=== PATIENT | male | born 1995 | race African-American/Black ===

== ENCOUNTER 2022-03-30 13:06 | Emergency (ER) | payer OTHER, SELFPAY ==
[2022-03-30 13:18] VITALS: BP 114/64; PULSE 78; RESP 16; TEMP 36.7; O2SAT 100
[2022-03-30 13:31] VITALS: BP 114/64; PULSE 78; RESP 16; TEMP 36.7; O2SAT 100
--- NOTE | 2022-03-30 13:32 | ED.DENTAL ---
HPI - Dental/Oral General Chief complaint: Dental/Oral Stated complaint: tooth pain Time Seen by Provider: 03/30/22 13:20 Source: patient, RN notes reviewed and old records reviewed Mode of arrival: ambulatory Limitations: no limitations History of Present Illness HPI Narrative: 26-year-old male [facility] complaints of dental pain to left lower posterior molar for the past 2 months which has increased in the last 2 to 3 days duration. Patient reports that he ate some rice last night and it made the tooth hurt even more. Patient denies any fevers, chills or sweats, no trismus noted and patient denies any difficulty with swallowing or with his breathing. MD Complaint: tooth pain Location: Tooth # (17) Onset (ago): month(s) (2 months with increase in past 2 days) Severity scale (1-10): 5 Treatment prior to arrival: oral analgesic Related Data Allergies Allergy/AdvReac Type Severity Reaction Status Date / Time No Known Allergies Allergy Verified 03/30/22 13:17 Review of Systems Review of Systems: CONSTITUTIONAL: Denies fever, chills, or sweats. EYES: Denies visual changes, redness, or discharge. ENT: Denies rhinorrhea, congestion, sore throat, or otalgia. Positive for dental pain CARDIOVASCULAR: Denies chest pain, palpitations, or edema. RESPIRATORY: Denies cough or dyspnea. GASTROINTESTINAL: Denies abdominal pain, nausea, vomiting, or diarrhea. GENITOURINARY: Denies dysuria or hematuria. SKIN: Denies rash or itching. MUSCULOSKELETAL: Denies back pain, joint pain, or myalgia. NEUROLOGIC: Denies headache, numbness, or weakness. PSYCHIATRIC: Denies anxiety or depression. All systems reviewed & are unremarkable except as noted in HPI and below [facility] Past Medical History Medical History (Updated 03/30/22 @ 13:57 by Lily Ross NP) Abscess of chest Bilateral ankle fractures Scalp abscess Surgical History Surgical History (Updated 03/30/22 @ 13:58 by Lily Ross NP) No history of previous surgery Social History Social History (Updated 03/30/22 @ 13:59 by Lily Ross NP) Smoking status: Never smoker Alcohol intake: never Substance use type: marijuana Last use: occasional use Living arrangements: with family Gender identity (if verbalized by the patient): Male Comments At time of signature, agree with nursing past medical, surgical, social and family history. There is no relevant family history pertinent to the presenting complaint Exam Narrative: GENERAL: Well-appearing, well-nourished, and in no acute distress. HEAD: Normocephalic, atraumatic. EYES: PERRLA and EOMI. ENT: Nares clear, no rhinorrhea or epistaxis. Mucous membranes moist. TM's normal with good light reflex, throat pink with no lesions or exudates,no tonsil swelling. no trismus or facial swelling noted, patient has no Hoang angina NECK: Supple.no lymphadenopathy CHEST: Clear to auscultation. No respiratory distress.SAO2 100% on room air HEART: Regular rate and rhythm. No murmur heard. Normal peripheral pulses. ABDOMEN: Soft, nontender, nondistended, normal active bowel sounds. EXTREMITIES: Normal range of motion. No edema. SKIN: Warm, dry, no rash. NEURO: No focal deficits. Alert and oriented x3. Course Course Level of Care: Express Care Visit Vital Signs Vital signs: Vital Signs Temperature 36.7 C 03/30/22 13:18 Pulse Rate 78 03/30/22 13:18 Respiratory Rate 16 03/30/22 13:18 Blood Pressure 114/64 03/30/22 13:18 Pulse Oximetry 100 03/30/22 13:18 Oxygen Delivery Room Air 03/30/22 13:18 Temperature 36.7 C 03/30/22 13:31 Pulse Rate 78 03/30/22 13:31 Respiratory Rate 16 03/30/22 13:31 Blood Pressure 114/64 03/30/22 13:31 Pulse Oximetry 100 03/30/22 13:31 Oxygen Delivery Room Air 03/30/22 13:31 Critical Care Time Critical Care Time Critical Care Time: No Discharge Plan Discharge Clinical Impression: Dentalgia, Dental impaction Lul
== END 2022-03-30 13:53 | disposition home or self-care (01) ==
PROVIDERS: Emergency Provider Registered Nurse
DX: K08.89 Other specified disorders of teeth and supporting structures (principal); K01.1 Impacted teeth
CPT/HCPCS: 99203; G0463

== ENCOUNTER 2024-02-12 18:04 | Emergency (ER) | payer OTHER, SELFPAY ==
--- NOTE | ~2024-02-12 | XR_ITS ---
EXAMINATION: XR chest 2V Exam Date/Time: 02/12/2024 18:17 CDT HISTORY: chest pain, CENTER AND TO THE RIGHT FOR 1 DAY Comparison: None. RESULT: Lines, tubes, and devices: None. Lungs and pleura: Clear. Cardiomediastinal silhouette: Normal. Other: No acute osseous or upper abdominal finding. IMPRESSION: No acute cardiopulmonary process. Reviewed, dictated and finalized at location K.
--- NOTE | 2024-02-12 18:05 | ECG_ITS ---
Test Date: 2024-02-12 18:09:26 Measurements Intervals [place] Rate: 58 P: 49 MD: 154 QRS: 74 QRSD: 86 T: 55 QT: 364 QTc: 359 Interpretive Statements SINUS BRADYCARDIA RSR' IN V1 OR V2, PROBABLY NORMAL VARIANT ST ELEVATION IN DIFFUSE LEADS- PROBABLY EARLY REPOLARIZATION BORDERLINE ECG No previous ECG available for comparison Electronically Signed On 02-13-2024 07:30:18 CDT by Casey Naik D.O.
[2024-02-12 18:16] VITALS: BP 109/70; PULSE 64; RESP 16; TEMP 36.6; O2SAT 100
[2024-02-12 18:20] LABS: Basophils Absolute Auto 0.1 K/mm3 (0.0-0.1); Basophils Percent Auto 0.9 % (0.2-1.2); Eosinophils Absolute Auto 0.3 K/mm3 (0-0.3); Eosinophils Percent Auto 3.4 % (0-4.4); Hematocrit 45.1 % (42.0-52.0); Hemoglobin 15.8 g/dL (14.0-18.0); Immature Granulocyte Absolute 0.03 K/mm3 (0.00-0.031); Immature Granulocyte Percent A 0.4 % (0-0.5); Lymphocytes Absolute Auto 3.05 K/mm3 (0.9-3.2); Lymphocytes Percent Auto 38.7 % (18.3-44.2); Mean Corpuscular Hemoglobin 31.6 pg (26-34); Mean Corpuscular Volume 90.2 fl (80-100); Mean Platelet Volume 10.5 fl (7.4-10.4); Monocytes Absolute Auto 0.6 K/mm3 (0.1-0.6); Monocytes Percent Auto 7.9 % (2.6-8.5); Neutrophils Absolute Auto 3.9 K/mm3 (1.3-6.7); Neutrophils Percent Auto 48.7 % (45.5-73.1); Platelet Count Result 190 k/mm3 (150-375); White Blood Count 7.9 K/mm3 (4.5-10.0)
[2024-02-12 18:31] LABS: Alanine Aminotransferase 31 U/L (6-50); Albumin Level 4.5 g/dL (3.5-5.1); Alkaline Phosphatase 79 U/L (38-126); Anion Gap 12 mmol/L (4-12); Aspartate Amino Transferase 25 U/L (17-59); Bilirubin,Total 0.9 mg/dL (0.2-1.3); Blood Urea Nitrogen 9 mg/dL (9-20); Calcium 9.3 mg/dL (8.4-10.2); Carbon Dioxide 24 mmol/L (22-30); Chloride 103 mmol/L (98-107); Estimated CRCL calculation 89 ml/min; Estimated Glomerular Filt Rate > 60; Glucose 78 mg/dL (65-110); Lipase 78 U/L (23-300); Potassium 3.6 mmol/L (3.4-5.0); Prothrombin Time 13.5 Seconds (11.1-14.7); Sodium 139 mmol/L (137-145)
[2024-02-12 18:32] LABS: Partial Thromboplastin Time 24.7 Seconds (22.3-36.8)
[2024-02-12 18:45] LABS: Troponin I < 0.012 ng/mL (0.000-0.034)
[2024-02-12 19:13] VITALS: BP 132/80; PULSE 59; RESP 15; O2SAT 100
[2024-02-12] MEDS: ASPIRIN 81 MG CHEWABLE TABLET 324 MG PO (19:25)
[2024-02-12] MEDS: SODIUM CHLORIDE 0.9% IV 1,000 ML 999 ML IV CONT (19:45)
[2024-02-12] MEDS: KETOROLAC 15 MG/ML VIAL (*BKC) IV PUSH (19:46)
[2024-02-12] MEDS: diphenhydrAMINE HCl INJ 50 MG/ML VIAL 25 MG IV PUSH (19:46)
[2024-02-12] MEDS: METOCLOPRAMIDE HCL INJ 10 MG/2 ML VIAL IV PUSH (19:46)
[2024-02-12 21:43] LABS: Troponin I < 0.012 ng/mL (0.000-0.034)
--- NOTE | 2024-02-12 21:55 | ECG_ITS ---
Test Date: 2024-02-12 21:55:17 Measurements Intervals [place] Rate: 52 P: 39 TX: 154 QRS: 64 QRSD: 92 T: 42 QT: 406 QTc: 378 Interpretive Statements SINUS BRADYCARDIA POSSIBLE RIGHT VENTRICULAR CONDUCTION DELAY ST ELEVATIONIN DIFFUSE LEADS, PROBABLY EARLY REPOLARIZATION BORDERLINE T WAVE ABNORMALITY- ANTERIOR LEADS BORDERLINE ECG Compared to ECG 02/12/2024 18:09:26 T-wave abnormality now present Electronically Signed On 02-13-2024 17:28:23 CDT by Casey Naik D.O.
--- NOTE | 2024-02-12 21:56 | ED.GENADULT ---
HPI - General Adult General Chief complaint: Chest Pain Stated complaint: chest pain Time Seen by Provider: 02/12/24 19:13 History of Present Illness HPI narrative: Patient is a 28-year-old gentleman who presents emergency department with chief complaint of chest wall pain. Patient reports that he started having discomfort on the right side of his chest patient reports pain is worse with inspiration worse with movement. Patient does report there is tightness or heaviness component does report that he has also had a headache. Patient states this not the worst headache of his life patient reports no shortness of breath denies diaphoresis reports no family history of early cardiac disease. Related Data Allergies Allergy/AdvReac Type Severity Reaction Status Date / Time No Known Allergies Allergy Verified 02/12/24 18:04 Review of Systems Review of Systems: A 10 system review of systems was completed on the patient and is negative except for what is stated in the HPI. Nursing and ancillary documentation was reviewed. [facility] Past Medical History Medical History Abscess of chest Bilateral ankle fractures Scalp abscess Surgical History Surgical History No history of previous surgery Social History Social History Smoking status: Never smoker Alcohol intake: never Substance use type: marijuana Last use: occasional use Living arrangements: with family Gender identity (if verbalized by the patient): Male Exam Narrative: GENERAL: Well-appearing, well-nourished, and in no acute distress. HEAD: Normocephalic, atraumatic. EYES: PERRLA and EOMI. ENT: Nares clear, no rhinorrhea or epistaxis. Mucous membranes moist. NECK: Supple. CHEST: Clear to auscultation. No respiratory distress. Chest wall tender to palpation on the right side chest HEART: Regular rate and rhythm. No murmur heard. Normal peripheral pulses. ABDOMEN: Soft, nontender, nondistended, normal active bowel sounds. EXTREMITIES: Normal range of motion. No edema. SKIN: Warm, dry, no rash. NEURO: No focal deficits. Alert and oriented x3. PSYCH: Normal mood and affect. Course Vital Signs Vital signs: Vital Signs Temperature 36.6 C 02/12/24 18:16 Pulse Rate 64 02/12/24 18:16 Respiratory Rate 16 02/12/24 18:16 Blood Pressure 109/70 02/12/24 18:16 Pulse Oximetry 100 02/12/24 18:16 Oxygen Delivery Room Air 02/12/24 18:16 Temperature 36.6 C 02/12/24 18:16 Pulse Rate 59 L 02/12/24 19:13 Respiratory Rate 15 02/12/24 19:13 Blood Pressure 132/80 02/12/24 19:13 Pulse Oximetry 100 02/12/24 19:13 Oxygen Delivery Room Air 02/12/24 18:16 Medical Decision Making MDM Narrative Medical decision making narrative: Differential diagnosis includes ACS, chest wall pain, atypical chest pain Laboratory studies were obtained on the patient showed normal CBC normal CMP liver enzymes were normal troponin was negative at 0 hour 3 hour lipase was normal Chest x-ray showed no focal infiltrate Vital Signs Vital Signs: Vital Signs Temperature 36.6 C 02/12/24 18:16 Pulse Rate 64 02/12/24 18:16 Respiratory Rate 16 02/12/24 18:16 Blood Pressure 109/70 02/12/24 18:16 Pulse Oximetry 100 02/12/24 18:16 Oxygen Delivery Room Air 02/12/24 18:16 Temperature 36.6 C 02/12/24 18:16 Pulse Rate 59 L 02/12/24 19:13 Respiratory Rate 15 02/12/24 19:13 Blood Pressure 132/80 02/12/24 19:13 Pulse Oximetry 100 02/12/24 19:13 Oxygen Delivery Room Air 02/12/24 18:16 Lab Data 02/12/24 18:14 02/12/24 18:14 Labs: Lab Results 02/12/24 02/12/24 Range/Units 18:14 21:18 WBC 7.9 (4.5-10.0) K/mm3 RBC 5.00 (4.6-6.20) M/mm3 Hgb 15.8 (14.0-18.0) g/dL Hct
[2024-02-12 22:25] VITALS: BP 116/74; PULSE 87; RESP 16; O2SAT 99
== END 2024-02-12 22:25 | disposition home or self-care (01) ==
PROVIDERS: Family Medicine; Emergency Provider Emergency Medicine
DX: R07.89 Other chest pain (principal); R51.9 Headache, unspecified
CPT/HCPCS: 36415; 71046; 80053; 83690; 84484; 85025; 85610; 85730; 93005; 96361; 96374; 96375; 99284; A9270; J1200; J1885; J2765; J7030

== ENCOUNTER 2024-08-01 18:05 | Emergency (ER) | payer OTHER, SELFPAY ==
[2024-08-01 18:12] VITALS: BP 114/85; PULSE 98; RESP 20; TEMP 36.4; O2SAT 98
--- NOTE | 2024-08-01 20:28 | PC.NURSE ---
Pt. call x1 to be brought back to a room with no reply.
== END 2024-08-01 20:28 | disposition left against medical advice (07) ==
DX: L72.9 Follicular cyst of the skin and subcutaneous tissue, unspecified (principal)
CPT/HCPCS: 99199

== ENCOUNTER 2024-10-01 01:27 | Day surgery (SDC) | payer OTHER, SELFPAY ==
[2024-09-19 12:38] VITALS: BMI 25.0
--- NOTE | 2024-09-19 12:39 | PC.NURSE ---
Report to the Outpatient Waiting Room, entrance under the green pavilion located off [facility], at time _1100_ on date _01-04-4126_. Planned Procedure Time: _1pm_.? Time changes happen often and if your time is changed the preop area will call you the afternoon before. - You and your visitor will be asked to self-screen and do not enter if you have any COVID symptoms. Please call surgeon if you need to reschedule. - A mask is optional within the hospital at this time. Patients may have clear liquids (water, carbonated beverages, clear teas, apple juice) until 3 hours prior to surgery with a maximum of 20 ounces. - No food from midnight until time of surgery and no smoking, or chewing tobacco (or any form of nicotine). No chewing gum, candy or mints. Take only the following medications with a SIP of water on the morning of surgery: ___Antibiotics if still taking.____ DO NOT STOP ANY OF YOUR OTHER PRESCRIPTION MEDICATIONS PRIOR TO SURGERY EXCEPT THE FOLLOWING Hold all vitamins and supplements for 3 days per anesthesiologist. Medications to discontinue per physician Date to take last dose Please no make-up, nail croatian, hairspray, perfume, deodorant, or body powder the day of surgery.? No jewelry (including any body piercings) or valuables the day of surgery, leave them at home.? Please take a shower or bath the night before, or the morning of, surgery with an antibacterial soap.? Wear comfortable, loose fitting clothing.? - Jewelry must be removed prior to entering the operating room.? Rings and piercings that are not removed may be cut off. - The hospital will not accept responsibility for valuables.? - Please leave all valuables, including medications, at home the day of surgery. If you are going home after surgery, a licensed entry level truck driver must drive you home.? - NO public transportation without another adult if you receive anesthesia. - We recommend that an adult stay with you for 24 hours following discharge. - We also recommend that you do not drive, make important decision, drink alcoholic beverages, or take any drugs that were not prescribed by your health care provider for at least 24 hours after your discharge time. Follow any additional instructions given to you from your surgeon. Telephone instructions given to __Scotty__and asked if any additional questions and then verbalized understanding. Patient advised to call surgeon office or pre surgery nurse liaison [phone] if any additional questions.
--- OUTSIDE RECORDS SUMMARY | 2024-10-01 01:30 | XMS_ITS | Clinical Summary ---
Author Organization [facility] [address] [facility] [address] Address [address] [address] Care Team Providers Care Plant Sciences Professor Name Role Phone Mitch Betancourt MD Primary Care Provider [phone] Allergies Active Allergy Reactions Criticality Noted Date Comments [place] Itching Low 02/15/2015 Medications No known medications Active Problems Problem Noted Date Diagnosed Date Abscess, scalp 11/04/2020 Assessment & Plan (11/04/2020 9:39 AM CDT): Will treat with Cleocin. Not fluctuant at this time and no drainage but likely this will need to be drained. We will refer to surgeon for drainage Well adult exam 05/26/2020 Assessment & Plan (05/26/2020 9:20 AM CDT): The lesion on his leg is very likely benign but I told him I can not rule out malignancy. Suggested referral to Dermatology for opinion but declined. He needs to return if this changes in any way such as increase in size. Told him biopsy is only way to be sure what it is. Immunizations Immunization Administration Dates Next Due DTP 02/13/1996, 5,03/21/1995,01/11 DTaP 11/15/1998 Hep B, Adolescent or Pediatric 05/31/1995,1994,1994 HiB 02/13/1996, 5,03/21/1995,01/11 Influenza, Unspecified 05/26/2020(Deferred: Tyesha ent Refused) MMR 11/15/1998,12/07/1995 Meningococcal Polysaccharide (Menomune) 01/05/2011 OPV 11/15/1998, 5,03/21/1995,01/11 Tdap 01/05/2011 Varicella 11/15/1998 Surgical History Surgery Date Site/Laterality Comments NO PAST SURGERIES Medical History Medical History Date Comments Asthma Family History Medical History Relation Name Comments Asthma Father Asthma Mother Cancer Neg Hx Diabetes Neg Hx Hypertension Neg Hx Relation Name Status Comments Father Alive Mother Social History Tobacco Use Types Packs/Day Years Used Date Smoking Tobacco: Never Smokeless Tobacco: Never Alcohol Use Standard Drinks/Week Comments Not Currently 0 (1 standard drink = 0.6 oz pur e alcohol) AUDIT-C Answer Date Recorded Q1: How often do you have a drink containing alc ohol? Monthly or less 11/04/2020 Q2: How many drinks containi ng alcohol do you have on a typical day when you are drinking? 1 or 2 11/04/2020 Q3: How often do you have si x or more drinks on one occasion? 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 Gender Identity Not on file Sexual Orientation Not on file Obstetrics History Last Filed Vital Signs Vital Sign Reading Time Taken Comments Blood Pressure 126/70 11/04/2020 9:21 AM CDT Pulse 86 11/04/2020 9:21 AM CDT Temperature 36.4 C (97.5 F) 11/04/2020 9:21 AM CDT Respiratory Rate 20 11/04/2020 9:21 AM CDT Oxygen Saturation 100% 11/04/2020 9:21 AM CDT Inhaled Oxygen Concentration - - Weight 53.7 kg (118 lb 4.8 oz) 11/04/2020 9:21 A M CDT Height 162.6 cm (5' 4.02 ) 11/04/2020 9:21 AM CD T Body Mass Index 20.3 11/04/2020 9:21 AM CDT Plan of Treatment Not on file [address] OPEN ACCESS [facility] HMO/PPO Address: [facility] [id number] [place] [address] Care Teams Plant Sciences Professor Relationship Specialty Start Date End Date Mitch Betancourt MD PCP - General 11/11/20
--- OUTSIDE RECORDS SUMMARY | 2024-10-01 01:30 | XMS_ITS | Referral Summary ---
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
--- OUTSIDE RECORDS SUMMARY | 2024-10-01 01:30 | XMS_ITS | CONTINUITY OF CARE DOCUMENT ---
Author Name shivam langley Address Unknown Organization [facility] Address [address] [place] [address] Phone [phone] Care Team Providers Care Director Card Name Role Phone Steve Galindo MD Unavailable Steve Galindo MD Unavailable [phone] INSURANCE PROVIDERS Payer name Policy type / Coverage type [place] [employer] [place] [id number] MED[place] Medicaid [id number]
[2024-10-01 10:30] VITALS: BP 114/69; PULSE 60; RESP 14; TEMP 36.4; O2SAT 100
[2024-10-01 11:28] VITALS: BMI 23.4
--- NOTE | 2024-10-01 12:13 | WPDHPUPDATE1 ---
History and Physical Update Update Date/Time: 10/01/24 12:13 History and Physical has been reviewed, including an updated exam of the patient. There are NO changes in the patient's condition. Risks, benefits, and alternatives have been discussed and questions answered. Patient agrees to proceed with procedure.
--- NOTE | 2024-10-01 13:28 | P.PNAN_ITS ---
Anes - Initial Pre Proc Eval Procedure: Operation Date: 10/01/24 13:00 Proposed Procedures p Excisional Biopsy Posterior Neck Cysts Times Two - Susan Esposito MD Date/Time: 10/01/24 13:28 Surgeon: Susan Esposito MD Pre Op Diagnosis: Posterior Neck Cysts Patient Data Age: 28 Gender: M Height: 1.65 m Weight: 64 kg Last Vital Signs Temp 97.6 F 10/01/24 10:30 Pulse 60 10/01/24 10:30 Resp 14 10/01/24 10:30 BP 114/69 10/01/24 10:30 Pulse Ox 100 10/01/24 10:30 O2 Del Method Room Air 10/01/24 10:30 Allergies Allergy/AdvReac Type Severity Reaction Status Date / Time No Known Allergies Allergy Verified 10/01/24 11:22 Home Medications ?Medication ?Instructions ?Recorded ?Confirmed ?Type amoxicillin 875 mg-potassium 1 tablet PO BID #20 tabs 09/10/24 10/01/24 Rx clavulanate 125 mg tablet Patient hx anesthesia problems: none Family hx anesthesia problems: none Results Review: All pre-operative results and documents have been reviewed as part of the pre- operative evaluation. [facility] Past Medical History Medical History Asthma Allergies Abscess of chest Scalp abscess Bilateral ankle fractures Surgical History Surgical History No history of previous surgery Family History Family History Mother Asthma Hypertension Cerebrovascular accident Father Asthma Hypertension Social History Social History Smoking status: Never smoker Tobacco type: e-cigarettes/vaping Alcohol intake: current Substance use type: marijuana Other substance usage details: 3 or 4 times a day. Last use: occasional use Do You Feel Safe in your Home?: Yes Lack of Transportation: No Lack of Food: Never True Current Housing: I Have Housing Concerned About Future Housing: No Difficulty Paying Gas/Electric Bills: No Difficulty Paying for Meds: No Currently Unemployed: YES Education: High School Diploma/GED Difficulty w/ Childcare or Family Care: No Living arrangements: with family Gender identity (if verbalized by the patient): Male Spiritual care concerns: No Anes - Eval Final PreProcedure Day of Procedure 10/01/24 13:28 Patient weight: normal Lungs: normal air movement Airway: Mallampati scale class 1 Neurological: alert and oriented Last oral intake: >/= 8 hours ASA classification: II Emergent: no Anesthetic plan: proceed Anesthesia type and monitoring: general GIVS and standard monitoring Results Review: All pre-operative results and documents have been reviewed as part of the pre- operative evaluation. Pt denies asthma, Smokes marijuana approx 4 x daily most days, none this am. Overall active w playing basketball, no cp or sob. Informed Consent: The patient's anesthetic plan and its attendant risks and benefits were discussed with the patient/family/POA. Questions were solicited and answers provided to the satisfaction of the patient/family/POA.
[2024-10-01] MEDS: ceFAZolin 2 GM/D5W 50 ML 2 GM/50 ML BAG IVPB (13:32)
[2024-10-01] MEDS: BUPIVACAINE/EPINEPHRINE 0.5% 50 ML VIAL 6 ML INFILTRATE (14:00)
[2024-10-01 14:13] VITALS: BP 117/68; PULSE 91; RESP 20; O2SAT 96
[2024-10-01] MEDS: LACTATED RINGERS 1,000 ML 30 ML IV CONT (14:13)
--- NOTE | 2024-10-01 14:25 | W.PM.PROC2 ---
Procedure Note - Detailed Date of Procedure 10/01/24 Pre-op Diagnosis Posterior Neck Cysts Post-op Diagnosis Same Procedure Performed aborted excisional biopsy posterior neck cyst x2 secondary to severe reactive airway bronchial spasms Surgeon Susan Esposito MD Anesthesia MAC and Local Indications 28-year-old male presenting with posterior neck cyst x2 Findings patient was severe bronchial spasms and procedure aborted secondary to desaturations and copious mucus production Description of Procedure The patient was taken the operating room placed in the lateral position. After adequate induction of MAC anesthesia, the patient was prepped and draped in the normal sterile fashion. A time-out was then done to verify the patient's identity, as well as the procedure being performed. I began by placing local anesthetic at the anticipated incision sites. The patient began to have a severe coughing episode with copious mucus production. The patient also was noted to have desaturations into the high 70s, low 80s as well as tachycardia. Given these findings, the decision was made to allow the patient to further wake up and stop on anesthetic. Given the severity of the reactive airway disease, bronchospasms the decision was made to abort the procedure. Upon lightening the patient, his saturations did improve to the 90s. At this point the patient will be allowed to be further monitored and woken up in the recovery room. Estimated Blood Loss 0 Condition Stable Disposition PACU [facility] Billing Surgery - Charge Forward: Surgery Billing
[2024-10-01 14:35] VITALS: BP 124/94; PULSE 88; RESP 16
[2024-10-01 14:52] VITALS: BP 105/62; PULSE 66; RESP 16
== END 2024-10-01 15:00 | disposition home or self-care (01) ==
PROVIDERS: PCP Emergency Medicine; Visit Provider Surgery
PROC: (CPT 11421; principal; 2024-10-01 13:00)
DX: L72.9 Follicular cyst of the skin and subcutaneous tissue, unspecified (principal); J98.01 Acute bronchospasm; F12.90 Cannabis use, unspecified, uncomplicated; Z82.49 Family history of ischemic heart disease and other diseases of the circulatory system
CPT/HCPCS: 11421; J0690; J2003; J2250; J2704; J3010; J7120

== ENCOUNTER 2024-11-25 08:31 | Emergency (ER) | payer OTHER, SELFPAY ==
--- NOTE | 2024-11-25 08:33 | ED.CHESTPAIN ---
HPI - Chest Pain General Chief Complaint: Chest Pain Stated Complaint: left side chest pain Time Seen by Provider: 11/25/24 08:40 Source: patient, RN notes reviewed and old records reviewed Mode of arrival: ambulatory Limitations: no limitations History of Present Illness HPI narrative: 29-year-old male presents to the [facility] with ?severe? left-sided chest pain. States that he woke up about 615 this morning with chest pain, shortness of breath. Patient with continued chest pain. Palpation of chest does not make pain better or worse. Patient states he has a history of asthma when he was a kid. Denies any cardiac history. Onset (ago): hour(s) (2) Prior episodes: Yes Onset: during rest Treatment prior to arrival: none Related Data Home Medications ?Medication ?Instructions ?Recorded ?Confirmed ?Last Taken ?Type No Home Medications 10/15/24 11/25/24 Unknown History Allergies Allergy/AdvReac Type Severity Reaction Status Date / Time No Known Allergies Allergy Verified 11/25/24 09:10 Review of Systems Review of Systems: All systems reviewed & are unremarkable except as noted in HPI and below Constitutional: Constitutional: Reports no additional constitutional complaints ENT: Reports system reviewed and no additional complaints, except as documented Cardiovascular: Cardiovascular: Reports as per HPI, Reports chest pain, Denies pedal edema and Reports dyspnea Respiratory: Respiratory: Reports no additional respiratory complaints, Denies chest congestion, Denies cough and Denies dyspnea Musculoskeletal: Musculoskeletal: Reports no additional musculoskeletal complaints Integumentary/Breasts: Skin/Breast: Reports system reviewed and no additional complaints, except as docu PMFSH Past Medical History Medical History Asthma Allergies Abscess of chest Scalp abscess Bilateral ankle fractures Surgical History Surgical History No history of previous surgery Family History Family History Mother Asthma Hypertension Cerebrovascular accident Father Asthma Hypertension Social History Social History Smoking status: Never smoker Tobacco type: e-cigarettes/vaping Alcohol intake: current Substance use type: marijuana Other substance usage details: 3 or 4 times a day. Last use: occasional use Do You Feel Safe in your Home?: Yes Lack of Transportation: No Lack of Food: Never True Current Housing: I Have Housing Concerned About Future Housing: No Difficulty Paying Gas/Electric Bills: No Difficulty Paying for Meds: No Currently Unemployed: YES Education: High School Diploma/GED Difficulty w/ Childcare or Family Care: No Living arrangements: with family Gender identity (if verbalized by the patient): Male Spiritual care concerns: No Comments At the time of my signature, I reviewed and agree with the nursing past medical, surgical, social, and family history. There is no relevant family history pertinent to the patient complaint. Exam Const: General: cooperative, healthy appearing, comfortable, no acute distress, well developed, alert and well nourished Nutritional Appearance: well nourished Orientation/consciousness: patient oriented x3 Limitations: no limitations HENMT: Head: normal to inspection Eyes: General: appearance normal, both eyes and all related structures Alignment and Position: alignment normal Neck: Neck: normal visual inspection, full ROM, no lymphadenopathy and no meningeal signs Chest: Chest palpation & inspection: normal inspection of the chest Resp: Effort & Inspection: normal respiratory effort and able to speak in complete sentences Auscultation: clear to auscultation bilaterally, no crackles, no rales, no rhonchi and no wheezes Cardio: Rate: regular rate Rhythm: regular rhythm GI: GI Palp: No abdominal tenderness Skin: General skin exam: normal color and no rashes or lesions noted Neuro: General: patient oriented x3, gait normal, moves all extremities and no meningeal signs Cognition (Neuro): normal cognition Speech: normal speech Gait exam (Neuro): Normal gait present Extrem: General: normal to inspection, full ROM, capillary refill normal and normal gait Psych: Appearance: grossly normal and well kempt Mental Status: mental status grossly normal Speech and movement: Normal speech and movement present and Clear speech present Affect: normal affect Attitude: cooperative Course Course Level of Care: Express Care Visit Vital Signs Vital signs: Vital Signs Temperature 98.8 F 11/25/24 08:37 Pulse Rate 63 11/25/24 08:37 Respiratory Rate 16 11/25/24 08:37 Blood Pressure 126/73 11/25/24 08:37 Pulse Oximetry 100 11/25/24 08:37 Oxygen Delivery Room Air 11/25/24 08:37 Temperature 98.8 F 11/25/24 08:37 Pulse Rate 63 11/25/24 08:37 Respiratory Rate 16 11/25/24 08:37 Blood Pressure 126/73 11/25/24 08:37 Pulse Oximetry 100 11/25/24 08:37 Oxygen Delivery Room Air 11/25/24 08:37 Reviewed Transfer Transfered to: [place] Transportation: Other (POV, declined EMS) Transfer rationale: Patient with left-sided chest pain. Accepting physician: Dr. Gallagher [facility] - Chest Pain MDM Narrative Medical decision making narrative: Patient sitting in exam room. Patient is complaining of ?severe? left-sided chest pain. Had some shortness of breath this morning. Has been going on for 2 to 2-1/2 hours. Patient being transferred for high-level care rule out cardiac, ACS, PE EKG was abnormal Vitals stable EMS offered, patient declined, states he will drive himself Patient stable Transfer instructions reviewed patient go directly to the ER. Do not eat or drink until clear by ER provider. EMS was offered, patient declined. All questions have been answered, and the patient deny any further questions. Some parts of this dictation were generated by voice recognition software and may contain typographical and/or grammatical inaccuracies. Differential Diagnosis Differential diagnosis: Likely stable angina, unstable angina pectoris, atypical chest pain, st elevation myocardial infarction, costochondritis, chest pain and other (acs, PE) ECG Data EKG #1: Attestation: I personally reviewed and interpreted this ECG as follows: ECG completion date: 11/25/24 ECG completion time: 08:56 Prior ECG tracings: available for review Interpretation: Sinus rhythm, possible right ventricular conduction delay, abnormal EKG, ventricular rate of 74, CT interval 161, QRS duration 85 Critical Care Time Critical Care Time Critical Care Time: No Discharge Plan Discharge Clinical Impression: Left-sided chest pain Patient Disposition: Acute Care Hospital Condition: Stable Patient Language: Macedonian Prescriptions: No Action No Home Medications Follow-up/Referrals: Boogie Barth MD [Primary Care Provider] -
[2024-11-25 08:37] VITALS: BP 126/73; PULSE 63; RESP 16; TEMP 37.1; O2SAT 100
--- NOTE | 2024-11-25 08:37 | ECG_ITS ---
Test Date: 2024-11-25 08:56:41 Measurements Intervals [place] Rate: 74 P: 42 PA: 161 QRS: 66 QRSD: 85 T: 37 QT: 363 QTc: 404 Interpretive Statements SINUS RHYTHM POSSIBLE RIGHT VENTRICULAR CONDUCTION DELAY ST ELEVATION IN DIFFUSE LEADS- PROBABLY EARLY REPOLARIZATION ABNORMALITY OR PERICARDITIS BASELINE ARTIFACT- II, III ABNORMAL ECG Compared to ECG 02/12/2024 21:55:17 Left ventricular hypertrophy now present Sinus bradycardia no longer present Early repolarization no longer present Electronically Signed On 11-25-2024 08:59:27 CDT by Casey Naik D.O.
== END 2024-11-25 08:56 | disposition short-term general hospital (02) ==
PROVIDERS: Emergency Provider Nurse Practitioner; PCP Emergency Medicine
DX: R07.9 Chest pain, unspecified (principal)
CPT/HCPCS: 93005; 99213; G0463

== ENCOUNTER 2024-11-25 09:12 | Emergency (ER) | payer OTHER, SELFPAY ==
--- NOTE | ~2024-11-25 | XR_ITS ---
XR chest 2V Ordering provider: Jordy Gallagher MD History: 29 years Male with . chest pain . Comparison: February 12, 2024 FINDINGS: MEDIASTINUM: The cardiac silhouette is not enlarged. LUNGS: No infiltrates, effusions or pneumothorax. OTHER: No free air under the diaphragm. IMPRESSION: No acute cardiopulmonary pathology. Reviewed, dictated and finalized at location A.
--- NOTE | 2024-11-25 08:55 | ECG_ITS ---
Test Date: 2024-11-25 08:55:39 Measurements Intervals [place] Rate: 68 P: 39 TN: 162 QRS: 66 QRSD: 88 T: 38 QT: 375 QTc: 401 Interpretive Statements SINUS RHYTHM POSSIBLE RIGHT VENTRICULAR CONDUCTION DELAY ST ELEVATION IN DIFFUSE LEADS- PROABLY EARLY REPOLARIZATION ABNORMALITY PEAKED T WAVES- CONSIDER HYPERKALEMIA ABNORMAL ECG Compared to ECG 02/12/2024 21:55:17 HEART RATE HAS INCREASED PEAKED T WAVES NOW PRESENT Electronically Signed On 11-26-2024 10:58:39 CDT by Casey Naik D.O.
--- NOTE | 2024-11-25 09:13 | ECG_ITS ---
Test Date: 2024-11-25 09:37:07 Measurements Intervals [place] Rate: 66 P: 38 [place]: 141 QRS: 55 QRSD: 93 T: 29 QT: 382 QTc: 400 Interpretive Statements SINUS RHYTHM INCOMPLETE RIGHT BUNDLE BRANCH BLOCK MINIMAL Q WAVES- ANTEROLATERAL LEADS ST ELEVATION IN DIFFUSE LEADS- PROBABLY EARLY REPOLARIZATION BASELINE ARTIFACT- I, II, III, AVR, AVL, AVF, V1-V6 BORDERLINE ECG Compared to ECG 11/25/2024 08:56:41 NO SIGNIFICANT CHANGE Electronically Signed On 11-25-2024 09:55:23 CDT by Casey Naik D.O.
[2024-11-25 09:35] VITALS: BP 106/68; PULSE 65; RESP 14; TEMP 36.7; O2SAT 100
--- OUTSIDE RECORDS SUMMARY | 2024-11-25 09:55 | XMS_ITS | CONTINUITY OF CARE DOCUMENT ---
Author Name shivam langley Address Unknown Organization [facility] Address [address] [place] [address] Phone [phone] Care Team Providers Care Podiatry Assistant Name Role Phone Steve Galindo MD Unavailable Steve Galindo MD Unavailable [phone] INSURANCE PROVIDERS Payer name Policy type / Coverage type [place] [employer] party ID [id number] MEDICAID Medicaid [id number]
--- OUTSIDE RECORDS SUMMARY | 2024-11-25 09:55 | XMS_ITS | Clinical Summary ---
Author Organization [facility] Address [address] [place] [address] Care Team Providers Care Educational Institution Curator Name Role Phone Claudy Conteh MD Primary Care Provider [phone] Source Comments [facility],non-owned Affiliates and Associated Physician Practices is amultiple site organization consisting of ambulatory clinics and hospital sitesin [place], [place], [place] and [place]. This disclosure is being madepursuant to the Care Everywhere program and may not contain all information available regarding this patient. Last updated 18.[facility] Medications * Be aware that medications may not be up to date on this document. Alwaysverify current medications with the patient. 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 Gender Identity Not on file Sexual Orientation Not on file Plan of Treatment Health Maintenance Due Date Last Done Comments HIV SCREENING 2009 HEPATITIS C SCREENING 11/07/2012 DTAP/TDAP/TD VACCINES (1 - Tdap) 2013 HEPATITIS B VACCINE (1 of 3 - 19+ 3-dose series) 2013 COVID-19 VACCINE ( - 2023-2 5 season) 2024 DEPRESSION SCREENING 07/30/2024 INFLUENZA VACCINE (Season Ended) 2025 ZOSTER VACCINE (1 of 2) 2044 HIB VACCINE Aged Out No longer eligi ble based on patient's age to complete this topic HPV VACCINE Aged Out No longer eligi ble based on patient's age to complete this topic MENINGOCOCCAL (Group B) VACC INE SHARED DECISION-MAKING Aged Out No longer eligibl e based on patient's age to complete this topic MENINGOCOCCAL GROUPS A/C/Y/W VACCINE Aged Out No longer eligible b ased on patient's age to complete this topic PNEUMOCOCCAL VACCINE Aged Out No long er eligible based on patient's age to complete this topic Care Teams Educational Institution Curator Relationship Specialty Start Date End Date Claudy Conteh MD [address] [place] [id number] PCP - General 07/26/10
--- OUTSIDE RECORDS SUMMARY | 2024-11-25 09:55 | XMS_ITS | Referral Summary ---
Author Organization [facility] [address] [facility] [place] Address [address] 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
--- OUTSIDE RECORDS SUMMARY | 2024-11-25 09:55 | XMS_ITS | Clinical Summary ---
Author Organization [facility] [address] [facility] [place] Address [address] 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
[2024-11-25 10:15] VITALS: BP 112/68; PULSE 63; RESP 19; TEMP 36.6; O2SAT 100
[2024-11-25 10:17] LABS: Basophils Absolute Auto 0.1 K/mm3 (0.0-0.1); Basophils Percent Auto 0.7 % (0.2-1.2); Eosinophils Absolute Auto 0.2 K/mm3 (0-0.3); Eosinophils Percent Auto 1.7 % (0-4.4); Hematocrit 46.5 % (42.0-52.0); Hemoglobin 15.4 g/dL (14.0-18.0); Immature Granulocyte Absolute 0.04 K/mm3 (0.00-0.031); Immature Granulocyte Percent A 0.4 % (0-0.5); Lymphocytes Absolute Auto 2.47 K/mm3 (0.9-3.2); Lymphocytes Percent Auto 24.1 % (18.3-44.2); Mean Corpuscular HGB Conc 33.1 g/dl (32-36); Mean Corpuscular Hemoglobin 30.3 pg (26-34); Mean Corpuscular Volume 91.5 fl (80-100); Mean Platelet Volume 10.1 fl (7.4-10.4); Monocytes Absolute Auto 0.5 K/mm3 (0.1-0.6); Monocytes Percent Auto 5.3 % (2.6-8.5); Neutrophils Percent Auto 67.8 % (45.5-73.1); Platelet Count Result 286 k/mm3 (150-375); Red Blood Count 5.08 M/mm3 (4.6-6.20); White Blood Count 10.3 K/mm3 (4.5-10.0)
--- NOTE | 2024-11-25 10:21 | ED_ITS ---
HPI - Chest Pain General Chief Complaint: Chest Pain Stated Complaint: chest pain sent from [facility] Time Seen by Provider: 11/25/24 09:35 Source: patient Mode of arrival: ambulatory Limitations: no limitations History of Present Illness HPI narrative: This is a 29-year-old male that presents to the emergency department for chest pain. Reports he woke up with it around 6 this morning. The pain was sharp in nature. It lasted for about an hour. Was relieved without intervention. Denies any current symptoms. Related Data Home Medications ?Medication ?Instructions ?Recorded ?Confirmed ?Last Taken ?Type No Home Medications 10/15/24 11/25/24 Unknown History Allergies Allergy/AdvReac Type Severity Reaction Status Date / Time No Known Allergies Allergy Verified 11/25/24 09:10 Review of Systems 2 Review of Systems: CONSTITUTIONAL: Denies fever CARDIOVASCULAR: Reports chest pain. Denies palpitations, or edema. RESPIRATORY: Denies cough or dyspnea. GASTROINTESTINAL: Denies abdominal pain, nausea, vomiting All systems reviewed & are unremarkable except as noted in HPI and below PMFSH Past Medical History Medical History Asthma Allergies Abscess of chest Scalp abscess Bilateral ankle fractures Surgical History Surgical History No history of previous surgery Family History Family History Mother Asthma Hypertension Cerebrovascular accident Father Asthma Hypertension Social History Social History Smoking status: Never smoker Tobacco type: e-cigarettes/vaping Alcohol intake: current Substance use type: marijuana Other substance usage details: 3 or 4 times a day. Last use: occasional use Do You Feel Safe in your Home?: Yes Lack of Transportation: No Lack of Food: Never True Current Housing: I Have Housing Concerned About Future Housing: No Difficulty Paying Gas/Electric Bills: No Difficulty Paying for Meds: No Currently Unemployed: YES Education: High School Diploma/GED Difficulty w/ Childcare or Family Care: No Living arrangements: with family Gender identity (if verbalized by the patient): Male Spiritual care concerns: No Exam 2 Narrative: GENERAL: Well-appearing, well-nourished, and in no acute distress. HEAD: Normocephalic, atraumatic. EYES: EOMI. CHEST: Clear to auscultation. No respiratory distress. No wheezes rales or rhonchi HEART: Regular rate and rhythm. No murmur heard. Normal peripheral pulses. EXTREMITIES: Normal range of motion. No edema. SKIN: Warm, dry, no rash. NEURO: No focal deficits. Alert and oriented x3. PSYCH: Normal mood and affect Course Course Emergency Course: Patient updated on his workup and agrees with plan of care Vital Signs Vital signs: Vital Signs Temperature 98.0 F 11/25/24 09:35 Pulse Rate 65 11/25/24 09:35 Respiratory Rate 14 11/25/24 09:35 Blood Pressure 106/68 11/25/24 09:35 Pulse Oximetry 100 11/25/24 09:35 Oxygen Delivery Room Air 11/25/24 09:35 Temperature 97.8 F 11/25/24 10:15 Pulse Rate 63 11/25/24 10:15 Respiratory Rate 19 11/25/24 10:15 Blood Pressure 112/68 11/25/24 10:15 Pulse Oximetry 100 11/25/24 10:15 Oxygen Delivery Room Air 11/25/24 09:38 MDM - Chest Pain MDM Narrative Medical decision making narrative: Patient presents to the emergency department for an episode of chest pain this morning. His vitals are normal. CBC and metabolic panel without concerning findings. Lipase is normal. Chest x-ray without acute cardiopulmonary abnormality. EKG with ST elevation that is consistent with early repolarization. No change from his EKG last year. His baseline troponin is negative. He has no symptoms currently. His heart score is 1. He is to follow up with primary provider. He was given warnings to return to the ER Differential Diagnosis Differential diagnosis: Likely pneumothorax, stable angina, atypical chest pain and costochondritis Lab Data Attestation: I reviewed the patient's lab results. 11/25/24 10:10 11/25/24 10:10 Labs: Lab Results 11/25/24 Range/Units 10:10 WBC 10.3 H (4.5-10.0) K/mm3 RBC 5.08 (4.6-6.20) M/mm3 Hgb 15.4 (14.0-18.0) g/dL Hct 46.5 (42.0-52.0) % MCV 91.5 (80-100) fl MCH 30.3 (26-34) pg MCHC 33.1 (32-36) g/dl RDW 12.0 (11.5-14.5) % Plt Count 286 D (150-375) k/mm3 MPV 10.1 (7.4-10.4) fl Immature Gran % (Auto) 0.4 (0-0.5) % Neut % (Auto) 67.8 (45.5-73.1) % Lymph % (Auto) 24.1 (18.3-44.2) % [place] % (Auto) 5.3 (2.6-8.5) % Eos % (Auto) 1.7 (0-4.4) % Baso % (Auto) 0.7 (0.2-1.2) % Lymph # (Auto) 2.47 (0.9-3.2) K/mm3 [place] # (Auto) 0.5 (0.1-0.6) K/mm3 Eos # (Auto) 0.2 (0-0.3) K/mm3 Baso # (Auto) 0.1 (0.0-0.1) K/mm3 Abs Immat Gran (auto) 0.04 H (0.00-0.031) K/mm3 Absolute Neuts (auto) 7.0 H (1.3-6.7) K/mm3 Absolute Nucleated RBC 0.000 (0.0-0.012) K/mm3 Nucleated RBC % 0.0 (0.0-0.2) % PT 12.4 (11.1-14.7) Seconds INR 0.9 APTT 26.1 (22.3-36.8) Seconds Sodium 140 (137-145) mmol/L Potassium 4.0 (3.4-5.0) mmol/L Chloride 106 (98-107) mmol/L Carbon Dioxide 24 (22-30) mmol/L Anion Gap 10 (4-12) mmol/L BUN 10 (9-20) mg/dL Creatinine 0.78 (0.7-1.3) mg/dL Estim Creat Clear Calc 101 ml/min Estimated GFR > 60 (59 - ) Glucose 96 (65-110) mg/dL Calcium 9.4 (8.4-10.2) mg/dL Total Bilirubin 0.4 (0.2-1.3) mg/dL AST 26 (17-59) U/L ALT 45 (6-50) U/L Alkaline Phosphatase 94 (38-126) U/L Troponin I < 0.012 (0.000-0.034) ng/mL Total Protein 8.0 (6.3-8.2) g/dL Albumin 4.4 (3.5-5.1) g/dL Lipase 153 (23-300) U/L Imaging Data Radiologist's impression: ITS Impressions Chest X-Ray 11/25/24 10:07 IMPRESSION: No acute cardiopulmonary pathology. ECG Data EKG #1: ECG completion date: 11/25/24 EKG Interpretation: normal rate, sinus rhythm, ST elevation (consistent with early repolarization), normal QT and no acute changes (compared to EKG 02/19) Critical Care Time Critical Care Time Critical Care Time: No Discharge Plan Discharge Clinical Impression: Atypical chest pain Patient Disposition: Home Condition: Stable Instructions: Chest Pain (ED) Additional Instructions: Return to the emergency department if you experience fever, chest pain, shortness of breath, abdominal pain with nausea and vomiting, weakness, numbness, or any other symptoms that are concerning to you. Follow up with primary care doctor Patient Language: Tongan Prescriptions: No Action No Home Medications Follow-up/Referrals: Boogie Barth MD [Primary Care Provider] - Quality HEART score for chest pain patients History: slightly suspicious ECG: non specific repolarization disturbance/LBTB/PM Age: < or = to 45 years Risk factors: no risk factors known Troponin: < or = to 1x normal limit Heart score: 1
[2024-11-25 10:27] LABS: INR 0.9; Prothrombin Time 12.4 Seconds (11.1-14.7)
[2024-11-25 10:28] LABS: Partial Thromboplastin Time 26.1 Seconds (22.3-36.8)
[2024-11-25 10:29] LABS: Alanine Aminotransferase 45 U/L (6-50); Albumin Level 4.4 g/dL (3.5-5.1); Alkaline Phosphatase 94 U/L (38-126); Anion Gap 10 mmol/L (4-12); Aspartate Amino Transferase 26 U/L (17-59); Bilirubin,Total 0.4 mg/dL (0.2-1.3); Blood Urea Nitrogen 10 mg/dL (9-20); Calcium 9.4 mg/dL (8.4-10.2); Carbon Dioxide 24 mmol/L (22-30); Chloride 106 mmol/L (98-107); Estimated CRCL calculation 101 ml/min; Estimated Glomerular Filt Rate > 60; Glucose 96 mg/dL (65-110); Lipase 153 U/L (23-300); Sodium 140 mmol/L (137-145)
[2024-11-25 10:39] LABS: Troponin I < 0.012 ng/mL (0.000-0.034)
[2024-11-25 10:53] VITALS: BP 114/75; PULSE 75; RESP 20; O2SAT 100
--- OUTSIDE RECORDS SUMMARY | 2024-11-25 11:10 | XMS_ITS | CONTINUITY OF CARE DOCUMENT ---
Author Name shivam langley Address Unknown Organization [facility] Address [address] [place] [address] Phone [phone] Care Team Providers Care Chief Innovation Officer Name Role Phone Steve Galindo MD Unavailable [phone] Steve Galindo MD Unavailable [phone] INSURANCE PROVIDERS Payer name Policy type / Coverage type [place] red democrat ID RIZ[place] MEDICAID Medicaid [id number]
--- OUTSIDE RECORDS SUMMARY | 2024-11-25 11:10 | XMS_ITS | Clinical Summary ---
Author Organization [facility] Address [address] [place] [address] Care Team Providers Care Mineral Engineer Name Role Phone Claudy Conteh MD Primary Care Provider [phone] Source Comments [facility],non-owned Affiliates and Associated Physician Practices is amultiple site organization consisting of ambulatory clinics and hospital sitesin [place], [place], [place] and [place]. This disclosure is being madepursuant to the Care Everywhere program and may not contain all information available regarding this patient. Last updated 18.[facility] Medications * Be aware that medications may not be up to date on this document. Alwaysverify current medications with the patient. 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
--- OUTSIDE RECORDS SUMMARY | 2024-11-25 11:10 | XMS_ITS | Referral Summary ---
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
--- OUTSIDE RECORDS SUMMARY | 2024-11-25 11:10 | XMS_ITS | Clinical Summary ---
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
== END 2024-11-25 10:54 | disposition home or self-care (01) ==
PROVIDERS: Emergency Medicine; Emergency Provider Physician Assistant; PCP Emergency Medicine
DX: R07.89 Other chest pain (principal); I45.10 Unspecified right bundle-branch block; J45.909 Unspecified asthma, uncomplicated
CPT/HCPCS: 36415; 71046; 80053; 83690; 84484; 85025; 85610; 85730; 93005; 99284

== ENCOUNTER 2024-12-10 09:06 | Emergency (ER) | payer OTHER, SELFPAY ==
--- NOTE | ~2024-12-10 | XR_ITS ---
EXAMINATION: XR chest 2V 12/10/2024 10:10 INDICATION: Cough and shortness of breath. History of asthma. PROCEDURE: 2 view chest COMPARISON: 11/25/2024 FINDINGS: The lungs are clear. The cardiomediastinal silhouette is within normal limits. There are no pleural effusions. There is no pneumothorax suspected. IMPRESSION: 1: NO ACUTE CARDIOPULMONARY DISEASE. Reviewed, dictated and finalized at location A.
[2024-12-10 09:08] VITALS: BP 110/72; PULSE 60; RESP 20; TEMP 36.4; O2SAT 100
--- OUTSIDE RECORDS SUMMARY | 2024-12-10 09:12 | XMS_ITS | Clinical Summary ---
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
--- OUTSIDE RECORDS SUMMARY | 2024-12-10 09:12 | XMS_ITS | CONTINUITY OF CARE DOCUMENT ---
Author Name shivam langley Address Unknown Organization [facility] Address [address] [place] [address] Phone [phone] Care Team Providers Care Plastics Supervisor Name Role Phone Steve Galindo MD Unavailable Steve Galindo MD Unavailable [phone] INSURANCE PROVIDERS Payer name Policy type / Coverage type [place] red constitution party ID [id number] MEDICAID Medicaid [id number]
--- OUTSIDE RECORDS SUMMARY | 2024-12-10 09:12 | XMS_ITS | Referral Summary ---
Author Organization [facility] [place] 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
--- OUTSIDE RECORDS SUMMARY | 2024-12-10 09:12 | XMS_ITS | Clinical Summary ---
Author Organization [facility] [employer] Address [address] [place] [address] Care Team Providers Care Commercial Counsel Name Role Phone Boogie Barth MD Primary Care Provider [phone] Source Comments [facility] [employer] [employer],non-owned Affiliates and Associated Physician Practices is amultiple site organization consisting of ambulatory clinics and hospital sitesin [place], [place], [place] and [place]. This disclosure is being madepursuant to the Care Everywhere program and may not contain all information available regarding this patient. Last updated 18.[facility] [employer] [employer] Medications * Be aware that medications may not be up to date on this document. Alwaysverify current medications with the patient. 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 Gender Identity Not on file Sexual Orientation Not on file Plan of Treatment Upcoming Encounters Date Type Department Care Team (Late st Contact Info) Description 02/19/2025 3:00 PM CDT Office Visit [facility] - Dermatology [address] [place] [address], [facility] [place] [phone] Tracey Caputo MD [address] [place] [address] DEPT OF DERMATOLOGY [address] [place] [phone] Health Maintenance Due Date Last Done Comments HIV SCREENING 2009 HEPATITIS C SCREENING 11/07/2012 DTAP/TDAP/TD VACCINES (1 - Tdap) 2013 HEPATITIS B VACCINE (1 of 3 - 19+ 3-dose series) 2013 COVID-19 VACCINE (1 - 2023-2 5 season) 2024 DEPRESSION SCREENING [...] on patient's age to complete this topic Insurance Care Teams Commercial Counsel Relationship Specialty Start Date End Date Boogie Barth MD [address] [place] [id number] PCP - General Family Medicine 11/26/24
--- OUTSIDE RECORDS SUMMARY | 2024-12-10 09:15 | XMS_ITS | CONTINUITY OF CARE DOCUMENT ---
Author Name shivam langley Address Unknown Organization [facility] Address [address] [place] [address] Phone [phone] Care Team Providers Care Compliance Consultant Name Role Phone Steve Galindo MD Unavailable Steve Galindo MD Unavailable [phone] INSURANCE PROVIDERS Payer name Policy type / Coverage type [place] red libertarian ID [id number] MEDICAID Medicaid [id number]
--- NOTE | 2024-12-10 09:22 | ECG_ITS ---
Test Date: 2024-12-10 09:53:33 Measurements Intervals [place] Rate: 63 P: 31 MN: 156 QRS: 60 QRSD: 89 T: 39 QT: 388 QTc: 399 Interpretive Statements SINUS RHYTHM ST ELEVATION, PROBABLY EARLY REPOLARIZATION [ST ELEVATION WITH NORMALLY INFLECTED T-WAVE] Compared to ECG 11/25/2024 09:37:07 Incomplete right bundle-branch block no longer present ST (T wave) deviation still present Electronically Signed On 12-10-2024 11:59:39 CDT by Montrell Mendez M.D.
--- NOTE | 2024-12-10 09:24 | ED.URI ---
HPI - URI/Sore Throat General Chief Complaint: Shortness of Breath/Dyspnea Stated Complaint: respiratory sx Time Seen by Provider: 12/10/24 09:07 History of Present Illness HPI Narrative: 29-year-old male with reported history of asthma presents with family at bedside for cough, shortness of breath and requesting a breathing treatment. Patient states over the past few days he has had a productive cough with shortness of breath and wheezing. He states he has been using his albuterol inhaler at home without improvement. He is requesting a breathing treatment today. He denies nasal congestion, otalgia of, lower extremity edema, hemoptysis, history of VTE, fevers. He reports rib pain with coughing. No other complaints. Related Data Allergies Allergy/AdvReac Type Severity Reaction Status Date / Time No Known Allergies Allergy Verified 12/10/24 09:06 Review of Systems Review of Systems: All systems reviewed & are unremarkable except as noted in HPI and below PMFSH Past Medical History Medical History Asthma Allergies Abscess of chest Scalp abscess Bilateral ankle fractures Surgical History Surgical History No history of previous surgery Family History Family History Mother Asthma Hypertension Cerebrovascular accident Father Asthma Hypertension Social History Social History Smoking status: Never smoker Tobacco type: e-cigarettes/vaping Alcohol intake: current Substance use type: marijuana Other substance usage details: 3 or 4 times a day. Last use: occasional use Do You Feel Safe in your Home?: Yes Lack of Transportation: No Lack of Food: Never True Current Housing: I Have Housing Concerned About Future Housing: No Difficulty Paying Gas/Electric Bills: No Difficulty Paying for Meds: No Currently Unemployed: YES Education: High School Diploma/GED Difficulty w/ Childcare or Family Care: No Living arrangements: with family Gender identity (if verbalized by the patient): Male Spiritual care concerns: No Exam Narrative: GENERAL: Well-appearing, well-nourished, and in no acute distress. HEAD: Normocephalic, atraumatic. EYES: EOMI. ENT: Nares clear, no rhinorrhea or epistaxis. Mucous membranes moist. Bilateral TMs are gregorio nonbulging with normal canals. Posterior pharynx erythema or edema, no tonsillar hypertrophy or exudates. No uvular deviation. NECK: Supple. CHEST: Clear to auscultation. No respiratory distress. Speaking in full sentences HEART: Regular rate and rhythm. No murmur heard. Normal peripheral pulses. ABDOMEN: Soft, nontender, nondistended, normal active bowel sounds. EXTREMITIES: Normal range of motion. No edema. Negative Homans bilaterally SKIN: Warm, dry, no rash. NEURO: No focal deficits. Alert and oriented x3 Course Vital Signs Vital signs: Vital Signs Temperature 97.6 F 12/10/24 09:08 Pulse Rate 60 12/10/24 09:08 Respiratory Rate 20 12/10/24 09:08 Blood Pressure 110/72 12/10/24 09:08 Pulse Oximetry 100 12/10/24 09:08 Oxygen Delivery Room Air 12/10/24 09:08 Temperature 97.6 F 12/10/24 09:08 Pulse Rate 60 12/10/24 09:36 Respiratory Rate 14 12/10/24 09:36 Blood Pressure 110/72 12/10/24 09:08 Pulse Oximetry 100 12/10/24 09:08 Oxygen Delivery Room Air 12/10/24 09:08 MDM - URI/Sore Throat MDM Narrative Medical decision making narrative: 29-year-old male with reported history of asthma presents emergency department for wheezing, shortness of breath, cough and requesting a breathing treatment. See HPI for further history. Triage vitals are stable. Patient is afebrile and nontoxic appearing and satting 100% on room air in no respiratory distress. He is speaking in full sentences. Lung sounds are clear. Exam is unremarkable. EKG shows normal sinus rhythm with diffuse ST elevations consistent with early repolarization, normal DC interval, normal QRS duration, normal QTC, no changes when compared to prior. Chest x-ray shows no acute cardiopulmonary process. Viral swabs are negative. Perc negative. Patient updated on results. He received a nebulizer treatment with improvement in symptoms. Remains resting comfortably in exam bed. Presentation consistent with viral bronchitis. Will start the patient on steroids and Tessalon Perles, he is also requesting a refill on his albuterol inhaler and work note for today. Advised follow-up with PCP and discussed strict ED return precautions. He is agreeable with the plan verbalized understanding. Discharged in stable condition. Lab Data Labs: Lab Results 12/10/24 Range/Units 09:51 Influenza A (RT-PCR) Negative (Negative) Influenza B (RT-PCR) Negative (Negative) RSV (RT-PCR) Negative (Negative) SARS-CoV-2 RNA (RT-PCR) Negative (Negative) Discharge Plan Discharge Clinical Impression: Acute bronchitis, viral Patient Disposition: Home Condition: Stable Instructions: Antibiotic Form, Asthma (ED), Acute Bronchitis (ED) Additional Instructions: You were evaluated in the emergency department for cough and shortness of breath. Your chest x-ray is reassuring. COVID, flu RSV tests are negative. Please take the steroids as directed, use her inhaler as directed, take benzonatate as needed for cough and follow-up closely with her primary care provider. Return to the emergency department if you develop a fever, worsening or changing shortness of breath, chest pain, or other concerning symptoms. Patient Language: Faroese Prescriptions: New benzonatate 200 mg capsule 200 mg PO BID PRN (Reason: cough) Qty: 14 0RF prednisone 20 mg tablet 40 mg PO DAILY Qty: 10 0RF albuterol sulfate 90 mcg/actuation HFA aerosol inhaler 1 inh inhalation QID PRN (Reason: shortness of breath or wheezing) Qty: 6.7 0RF Follow-up/Referrals: Boogie Barth MD [Primary Care Provider] -
[2024-12-10 09:27] VITALS: PULSE 58; RESP 14
[2024-12-10] MEDS: IPRATROPIUM 0.5 MG/ALBUTEROL SULFATE 2.5 MG AMPUL.NEB 3 ML INHALATION (09:27)
[2024-12-10 09:36] VITALS: PULSE 60; RESP 14
[2024-12-10 10:46] LABS: Influenza A QL RT-PCR Negative (Negative); Influenza B QL RT-PCR Negative (Negative); RSV RNA, RT-PCR Negative (Negative); SARS-CoV-2 RNA PCR Negative (Negative)
[2024-12-10] MEDS: predniSONE 20 MG TABLET 40 MG PO (11:10)
== END 2024-12-10 11:23 | disposition home or self-care (01) ==
PROVIDERS: Emergency Provider Physician Assistant; PCP Emergency Medicine
DX: J20.8 Acute bronchitis due to other specified organisms (principal); Z20.822 Contact with and (suspected) exposure to COVID-19; J45.909 Unspecified asthma, uncomplicated; F17.290 Nicotine dependence, other tobacco product, uncomplicated; R94.31 Abnormal electrocardiogram [ECG] [EKG]
CPT/HCPCS: 71046; 87637; 93005; 94640; 99283; J7512

== ENCOUNTER 2025-03-04 08:54 | Emergency (ER) | payer MEDICAID, SELFPAY ==
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
[2025-03-04 09:01] VITALS: BP 112/66; PULSE 72; RESP 18; TEMP 36.8; O2SAT 100
== END 2025-03-04 09:30 | disposition home or self-care (01) ==
PROVIDERS: Emergency Provider Nurse Practitioner Family; PCP Emergency Medicine
DX: M75.22 Bicipital tendinitis, left shoulder (principal); F17.290 Nicotine dependence, other tobacco product, uncomplicated; F12.90 Cannabis use, unspecified, uncomplicated; J45.909 Unspecified asthma, uncomplicated
CPT/HCPCS: 99213; G0463